=== PATIENT | female | born 1960 | race Hispanic/Latino ===

== ENCOUNTER 2017-10-17 07:48 | Day surgery (SDC) | payer MEDICAID ==
[2017-10-17 08:14] VITALS: BMI 26.6
[2017-10-17] MEDS ORDERED: Lactated Ringer's 1,000 ML IV ONE (08:30)
[2017-10-17 08:32] VITALS: TEMP 96.8
[2017-10-17] MEDS ORDERED: Midazolam 2 MG/2 ML VIAL ONE (09:40)
[2017-10-17] MEDS ORDERED: Propofol 10 mg/ml Inj (20 ML) ONE (09:40)
[2017-10-17] MEDS ORDERED: Lidocaine 2% MPF (5 ml) Inj ONE (09:40)
[2017-10-17 10:41] VITALS: BP 105/70; PULSE 70; RESP 12; O2SAT 98
== END 2017-10-17 10:30 | disposition home or self-care (01) ==
LOC: H.ENDO 07:48
PROVIDERS: ATTEND Internal Medicine Gastroenterology
DX: K29.50 Unspecified chronic gastritis without bleeding (principal); K59.09 Other constipation; K64.8 Other hemorrhoids; R10.13 Epigastric pain; Z98.84 Bariatric surgery status
CPT/HCPCS: 43239; 45378; 88305; J2250; J2704; J7120